=== PATIENT | male | born 1985 | race Two or more races ===

== ENCOUNTER 2023-04-26 21:14 | Emergency (ER) | payer MEDICAID, OTHER ==
[~2023-04-26] VITALS: Ht 175.3 cm; Wt 100.0 kg
[2023-04-26 21:14] VITALS: BP 131/79; PULSE 102; RESP 17; O2SAT 98
[2023-04-26] MEDS ORDERED: NALOXONE HCL 1MG/ML 2ML SYRINGE ONE (21:27)
[2023-04-26] MEDS ORDERED: NALOXONE HCL 1MG/ML 2ML SYRINGE IV ONE (22:15)
== END 2023-04-27 01:42 | disposition left against medical advice (07) ==
LOC: ER 21:14 → EDBD 21:14 → ER 04-27 01:42
DX: T43.641A Poisoning by ecstasy, accidental (unintentional), initial encounter (principal); Z53.21 Procedure and treatment not carried out due to patient leaving prior to being seen by health care provider; Y92.89 Other specified places as the place of occurrence of the external cause
CPT/HCPCS: 99281; J2310